=== PATIENT | male | born 1990 | race African-American/Black ===

== ENCOUNTER 2019-11-02 08:12 | Emergency (ER) | payer SELFPAY | END 2019-11-02 08:58 | disposition home or self-care (01) | LOC: NAV ERS 08:12 | DX: J02.9 Acute pharyngitis, unspecified (principal) | CPT/HCPCS: 87081; 87430; 99283 ==

== ENCOUNTER 2020-04-05 13:47 | Emergency (ER) | payer SELFPAY ==
[2020-04-05] MEDS ORDERED: Acetaminophen 500 MG TAB ONE (14:02)
--- NOTE | 2020-04-05 16:36 | RAD ---
RIGHT HAND THREE VIEWS: History: Injury, right hand pain, particularly in the third digit. FINDINGS/IMPRESSION: No acute fracture or dislocation identified. POS: [id number]
== END 2020-04-05 14:28 | disposition home or self-care (01) ==
LOC: NAV ERS 13:47
DX: S63.91XA Sprain of unspecified part of right wrist and hand, initial encounter (principal); X50.1XXA Overexertion from prolonged static or awkward postures, initial encounter

== ENCOUNTER 2023-12-07 15:00 | Emergency (ER) | payer OTHER, SELFPAY ==
[~2023-12-07 15:00] MED LIST: Iopamidol 370 76% 100 ML VIAL ONE
[2023-12-07] MEDS ORDERED: Acetaminophen 500 MG TAB ONE ×2 (15:24→21:19)
[2023-12-07 15:46] LABS: #Lymphocytes 0.8 thou/uL (1.20-3.40); #Monocytes 0.3 thou/uL (0.11-0.59); #Neutrophils 5.1 thou/uL (1.40-6.50); %Basophils 0.6 % (0.0-1.0); %Lymphocytes 13.4 % (21.0-51.0); %Neutrophils 80.9 % (42.0-75.0); Hematocrit 42.2 % (42.0-52.0); Mean Corpuscular HGB CONC 33.2 g/dL (32.0-36.0); Mean Corpuscular Hemoglobin 28.7 pg (27.0-31.0); Mean Corpuscular Volume 86.5 fl (78.0-98.0); Mean Platelet Volume 7.2 fL (7.4-10.4); Platelet Count 148 10x3/uL (130-400); RBC Distribution Width 11.5 % (11.5-14.5); Red Blood Cell (RBC) Count 4.88 mill/uL (4.70-6.10); White Blood Cell (WBC) Count 6.2 10x3/uL (4.8-10.8)
[2023-12-07 15:58] LABS: ALT (SGPT) 30 U/L (8-55); AST (SGOT) 37 U/L (5-34); Alkaline Phosphatase 36 U/L (40-110); Anion Gap 14 mmol/L (10-20); BUN (Urea Nitrogen) 13 mg/dL (8.9-20.6); Bilirubin, Total 0.6 mg/dL (0.2-1.2); Calc. Creatinine Clearance 0 mL/min (70-130); Calcium 8.8 mg/dL (7.8-10.44); Carbon Dioxide 24 mmol/L (22-29); Chloride 97 mmol/L (98-107); Estimated GFR 43; Globulin 3.8 g/dL (2.4-3.5); Glucose 107 mg/dL (70-105); Lipase 60 U/L (8-78); Potassium 3.2 mmol/L (3.5-5.1); Protein, Total 7.8 g/dL (6.0-8.3); Sodium 132 mmol/L (136-145)
[2023-12-07] MEDS ORDERED: Piperacillin/Tazobactam 4.5 GM VIAL ONE (16:03)
[2023-12-07] MEDS ORDERED: Sodium Chloride 0.9% 100 ML ONE (16:04)
[2023-12-07] MEDS ORDERED: Morphine 4 MG/ML VIAL ONE (16:04)
[2023-12-07] MEDS ORDERED: Dextrose 5 %-0.45 % NaCl 1,000 ML ONE (16:58)
[2023-12-07] MEDS ORDERED: Vancomycin 1 GM VIAL ONE (17:04)
[2023-12-07] MEDS ORDERED: Sodium Chloride 0.9% 250 ML 250 ML ONE ×2 (17:05→19:24)
[2023-12-07 17:45] LABS: SARS-CoV-2 NAA Rapid Test Not Detected (NotDetected)
[2023-12-07 17:47] LABS: Bilirubin Negative (Negative); Blood, Urine Trace (Negative); Clarity Clear (Clear); Glucose, Urine (Dipstick) Negative (Negative); Ketone, Urine Negative (Negative); Leukocyte Negative (Negative); Nitrite Negative (Negative); Protein, Urine (Dipstick) Negative (Neg-Trace); Urobilinogen 0.2 mg/dL (Less than 2)
[2023-12-07 17:48] LABS: CAUTI Indications for Culture Pelvic or flank pain; RBC/HPF 0-3 HPF (0-3); Specific Gravity, Urine 1.006 (1.002-1.036); Squamous Epithelial 0-3 HPF (0-3); WBC/HPF 0-3 HPF (0-3)
[2023-12-07 17:49] LABS: Urine Culture Reflex No No
[2023-12-07] MEDS ORDERED: Vancomycin HCl 750 MG VIAL ONE (19:24)
== END 2023-12-07 21:34 | disposition short-term general hospital (02) ==
LOC: NAV ERS 15:00
DX: K57.32 Diverticulitis of large intestine without perforation or abscess without bleeding (principal)
CPT/HCPCS: 36415; 71045; 74177; 80053; 81001; 83605; 83690; 85025; 87040; 87149; 96365; 96366; 96367; 96375; J2270; J2543; J3370; J3490; J7042; J7050; Q9967